=== PATIENT | male | born 1960 | race Caucasian/White ===

== ENCOUNTER 2022-06-14 16:53 | Inpatient (IN) ==
[2022-06-14] MEDS ORDERED: Azithromycin 500 MG in D5% in Water 250 ML IVPB ONE (17:03)
[2022-06-14] MEDS ORDERED: cefTRIAXone 1,000 MG in 0.9 % Sodium Chloride Mini Bag 100 ML IVPB ONE (17:03)
[2022-06-14] MEDS ORDERED: Naloxone 0.4 MG/ML INJ IVP PRN (18:49)
[2022-06-14] MEDS ORDERED: Ondansetron 4 MG/2 ML VIAL IVP PRN (18:49)
[2022-06-14] MEDS ORDERED: Acetaminophen 325 MG TABLET PO PRN (18:49)
[2022-06-14] MEDS ORDERED: *HR* OxyCODONE/APAP 5/325 TABLET PO PRN (18:53)
[2022-06-14 23:24] LABS: Adenovirus Not Detected (Not Detect); Bordetella Pertussis Not Detected (Not Detect); Chlamydophila pneumoniae Not Detected (Not Detect); Coronavirus 229E Not Detected (Not Detect); Coronavirus HKU1 Not Detected (Not Detect); Coronavirus NL63 Not Detected (Not Detect); Coronavirus OC43 Not Detected (Not Detect); Human Metapneumovirus Not Detected (Not Detect); Human Rhinovirus/Enterovirus Not Detected (Not Detect); Influenza A Subtype 2009 H1 Not Detected (Not Detect); Influenza B Not Detected (Not Detect); Mycoplasma pneumoniae Not Detected (Not Detect); Parainfluenza Virus 1 Not Detected (Not Detect); Parainfluenza Virus 2 Not Detected (Not Detect); Parainfluenza Virus 3 Not Detected (Not Detect); Parainfluenza Virus 4 Not Detected (Not Detect); Respiratory Syncytial Virus Not Detected (Not Detect); SARS-CoV-2 Not Detected (Not Detect)
[2022-06-15] MEDS: MethylPREDNISolone 40 MG/ML VIAL IVP SCH ×3 (02:32→18:18)
[2022-06-15] MEDS ORDERED: Ipratropium/Albuterol Neb 3 ML IH PRN (04:00)
[2022-06-15 05:05] LABS: Hematocrit 39.2 % (37.5-50.1); Hemoglobin 12.1 g/dL (12.9-16.9); Mean Corpuscular HGB Conc 30.9 g/dL (31.6-35.5); Mean Corpuscular Hemoglobin 25.2 pg (28.0-33.3); Mean Corpuscular Volume 81.7 fL (83.0-100.0); Mean Platelet Volume 10.4 fL (9.4-12.4); Platelet Count 236 K/mcL (140-400); Red Cell Distribution Width 15.3 % (11.5-14.5); White Blood Count 7.7 K/mcL (4.3-11.1)
[2022-06-15 05:33] LABS: Alanine Aminotransferase 9 Units/L (7-52); Albumin 4.1 g/dL (3.5-5.7); Albumin/Globulin Ratio 1.3 (1.1-2.2); Alkaline Phosphatase 39 Units/L (34-104); Aspartate Amino Transferase 13 Units/L (13-39); BUN/Creatinine Ratio 24 (6-26); Bilirubin,Total 0.8 mg/dL (0.3-1.0); Blood Urea Nitrogen 16 mg/dL (8-23); Calcium 8.3 mg/dL (8.6-10.3); Carbon Dioxide 28 mEq/L (23-29); Chloride 98 mEq/L (98-107); Chol/HDL Ratio 3.7 (0-4.9); Cholesterol 111 mg/dL (< 200); Globulin 3.2 g/dL (2.4-3.5); Glucose 137 mg/dL (70-105); HDL Cholesterol 30 mg/dL (40-59); LDL Cholesterol,Calculated 66 mg/dL (< 100); Osmolality,Calculated 285 (280-300); Potassium 3.4 mEq/L (3.5-5.1); Sodium 136 mEq/L (136-145); Total Protein 7.3 g/dL (6.4-8.9); Triglycerides 76 mg/dL (< 150)
[2022-06-15] MEDS: *HR* Enoxaparin 40 MG/0.4 ML SYRINGE SQ SCH (05:33)
[2022-06-15] MEDS: Fenofibrate 54 MG TABLET PO SCH (10:03)
[2022-06-15] MEDS: Loratadine 10 MG TABLET PO SCH (10:04)
[2022-06-15] MEDS: Aspirin 81 MG TAB.CHEW PO SCH (10:04)
[2022-06-15] MEDS: Metoprolol XL (24 HR) Succ 25 MG TAB.ER.24H PO SCH (10:05)
[2022-06-15] MEDS: Dapagliflozin Propanediol [Farxiga] 10 MG Tablet PO SCH (10:14)
[2022-06-15] MEDS: levoFLOXacin 750 MG/150 ML 750 MG/150 ML BAG IVPB SCH (13:41)
[2022-06-15 16:54] LABS: BUN/Creatinine Ratio 23 (6-26); Blood Urea Nitrogen 16 mg/dL (8-23); Calcium 8.7 mg/dL (8.6-10.3); Carbon Dioxide 27 mEq/L (23-29); Chloride 100 mEq/L (98-107); Glucose 227 mg/dL (70-105); Osmolality,Calculated 286 (280-300); Potassium 4.1 mEq/L (3.5-5.1); Sodium 134 mEq/L (136-145)
[2022-06-16] MEDS: MethylPREDNISolone 40 MG/ML VIAL IVP SCH (02:24)
[2022-06-16 04:56] VITALS: TEMP 97.6
[2022-06-16 05:04] LABS: Mean Corpuscular HGB Conc 31.6 g/dL (31.6-35.5); Mean Corpuscular Hemoglobin 25.7 pg (28.0-33.3); Mean Corpuscular Volume 81.4 fL (83.0-100.0); Mean Platelet Volume 10.7 fL (9.4-12.4); Platelet Count 257 K/mcL (140-400); Red Blood Count 4.67 M/mcL (4.19-5.50); Red Cell Distribution Width 15.2 % (11.5-14.5); White Blood Count 12.9 K/mcL (4.3-11.1)
[2022-06-16 05:19] LABS: BUN/Creatinine Ratio 30 (6-26); Blood Urea Nitrogen 20 mg/dL (8-23); Calcium 8.6 mg/dL (8.6-10.3); Carbon Dioxide 27 mEq/L (23-29); Chloride 102 mEq/L (98-107); Glucose 170 mg/dL (70-105); Magnesium 2.3 mg/dL (1.6-2.6); Osmolality,Calculated 287 (280-300); Potassium 4.2 mEq/L (3.5-5.1); Sodium 135 mEq/L (136-145)
[2022-06-16] MEDS: *HR* Enoxaparin 40 MG/0.4 ML SYRINGE SQ SCH (05:48)
[2022-06-16 07:45] VITALS: BP 153/87; PULSE 73; RESP 15; O2SAT 96
[2022-06-16] MEDS: Loratadine 10 MG TABLET PO SCH (08:51)
[2022-06-16] MEDS: levoFLOXacin 750 MG/150 ML 750 MG/150 ML BAG IVPB SCH (08:52)
[2022-06-16] MEDS: Fenofibrate 54 MG TABLET PO SCH (08:52)
[2022-06-16] MEDS: Metoprolol XL (24 HR) Succ 25 MG TAB.ER.24H PO SCH (08:52)
[2022-06-16] MEDS: Aspirin 81 MG TAB.CHEW PO SCH (08:52)
[2022-06-16] MEDS: Dapagliflozin Propanediol [Farxiga] 10 MG Tablet PO SCH (08:53)
== END 2022-06-16 09:05 | disposition home or self-care (01) | DRG 139 ==
LOC: EMEROOGRE 16:53 → INPGRE 16:53
PROVIDERS: ADMIT Family Medicine; ATTEND Family Medicine